=== PATIENT | female | born 1990 | race Caucasian/White ===

== ENCOUNTER 2024-10-25 10:10 | Outpatient (OUT) | payer OTHER, SELFPAY ==
--- NOTE | 2024-10-25 | US_ITS ---
The [address] [address] Patient Name: SYDNI PANDEY MRN: [id number] date: 1990 Sex: F Assigned Patient Location: Current Patient Location: Accession/Order Number: [id number] Exam Date: 10/25/2024 18:41 Report Date: 10/25/2024 18:44 At the request of: JACKIE SUERO DO Procedure: US pelvis w/ transvaginal EXAMINATION TYPE: US pelvis w/ transvaginal Grayscale, color scale Doppler, vascular duplex analysis of the bilateral ovaries DATE OF EXAM ORDERED: 10/25/2024 10:53 AM HISTORY: PCOS E28.2, COMPARISON: 03/14/2019 TECHNIQUE: Realtime Transvaginal and Transabdominal imaging was performed. Transvaginal imaging was utilized to better evaluate the ovaries and the endometrial stripe. Grayscale and color scale Doppler of the bilateral ovaries was performed to assess blood flow. FINDINGS: The uterus measures 7.3 x 3.2 x 5.1 cm. The uterus is normal in echogenicity. Endometrium: Normal thickness and appearance. The endometrium measures 3 mm in thickness. Ovaries: The visualized ovaries are within normal limits for songraphic evaluation. Multiple normal-appearing follicles are noted bilaterally. Right Ovary measurements: 2.8 x 1.7 x 2.0 cm Left Ovary measurements: 2.5 x 2.0 x 1.9 cm No abnormal adnexal mass is seen. No free fluid in the pelvic cul-de-sac. Vascular analysis of the bilateral ovaries demonstrates normal blood flow without evidence of ovarian ischemia. US/US pelvis w/ transvaginal IMPRESSION: No dominant mass or cyst. Normal ovarian follicles are present bilaterally. No evidence of ovarian ischemia. Impression dictated by: Cristopher Garcia M.D. 10/25/2024 6:44 PM Dictation Location: [place] [address] Electronically authenticated by: [id number] Date: 10/25/2024 18:44
== END 2024-10-25 10:11 | disposition home or self-care (01) ==
LOC: US 10:10
PROVIDERS: Family Provider Family Medicine; Visit Provider Obstetrics & Gynecology
DX: E28.2 Polycystic ovarian syndrome (principal)
CPT/HCPCS: 76830; 76856